=== PATIENT | female | born 1965 | race Caucasian/White ===

== ENCOUNTER 2024-02-08 18:36 | Observation (INO) | payer MEDICAID, SELFPAY ==
[2024-02-08 18:37] VITALS: BP 227/113; PULSE 95; RESP 18; TEMP 37.1; O2SAT 96; BMI 28.5
--- NOTE | 2024-02-08 18:42 | XRR_ITS ---
PROCEDURE INFORMATION: Exam: XR Chest Exam date and time: 02/08/2024 7:06 PM Age: 58 years old Clinical indication: Screening exam; Other screening; Additional info: Suicidal ideation TECHNIQUE: Imaging protocol: Radiologic exam of the chest. Views: 1 view. COMPARISON: No relevant prior studies available. FINDINGS: Lungs: Unremarkable. No consolidation. Pleural spaces: Unremarkable. No pleural effusion. No pneumothorax. Heart/Mediastinum: Unremarkable. No cardiomegaly. Bones/joints: Unremarkable. XR/XR chest 1V portable [id number] IMPRESSION: No acute findings.
--- NOTE | 2024-02-08 18:51 | ECG_ITS ---
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 Measurements Intervals [place] Rate: 84 P: 46 IA: 160 QRS: -45 QRSD: 92 T: 61 QT: 383 QTc: 454 Interpretive Statements SINUS RHYTHM POSSIBLE LEFT ATRIAL ENLARGEMENT [-0.1mV P-WAVE IN V1/V2] LEFT ANTERIOR FASCICULAR BLOCK [QRS AXIS <= -45, QR IN I, RS IN II] No previous ECG available for comparison Electronically Signed On 02-08-2024 20:18:08 CDT by Damien Swift M.D. [id number]
[2024-02-08 19:17] LABS: Basophils # 0.1 10^3/uL (0.0-0.1); Basophils % 1.3 %; Eosinophils # 0.2 10^3/uL (0.0-0.8); Eosinophils % 2.2 %; Hematocrit 42.3 % (36-47); Lymphocytes # 2.6 10^3/uL (0.8-4.8); Lymphocytes % 32.8 %; Mean Corpuscular HGB Conc 32.9 g/dL (30-55); Mean Corpuscular Hemoglobin 28.7 pg (27-33); Mean Corpuscular Volume 87.2 fl (85-98); Mean Platelet Volume 10.1 fL (7.4-10.4); Monocytes # 0.9 10^3/uL (0.2-0.9); Monocytes % 11.5 %; Neutrophils # 4.06 10^3/uL (1.8-7.7); Neutrophils % 52.1 %; Nucleated Red Blood Cells % 0 %; Platelet Count 283 10^3/cmm (157-399); Red Blood Count 4.85 10^6/uL (3.85-5.65); Red Cell Distribution Width 12.5 % (12.1-15.1)
[2024-02-08 19:18] LABS: Bilirubin Urine Negative (Negative); Blood Urine Negative (Negative); Glucose Urine UA Negative (Normal); Ketones Urine Negative (Negative); Leukocyte Esterase Urine Negative (Negative); Nitrate Urine Negative (Negative); Protein Urine Negative (Negative); Specific Gravity, Urine 1.011 (1.005-1.030); Urine Appearance Clear (CLEAR); Urine Color Yellow (Yellow)
[2024-02-08 19:23] LABS: Add Urine Microscopic? YES; Bacteria Urine None Seen /hpf; Hyaline Casts Urine 0.81 /lpf; RBC Urine 0-2 /hpf (0-2); Squamous Epithelial Cell Urine 0-5 /hpf (0-5); WBC Urine 0-5 /hpf (0-5)
[2024-02-08 19:27] LABS: Amphetamines Screen Urine Negative (Negative); Barbiturates Screen Urine Negative (Negative); Benzodiazepines Screen Urine Negative (Negative); Cocaine Screen Urine Negative (Negative); Opiate Screen Urine Negative (Negative); PCP Screen Urine Negative (Negative); THC Screen Urine Positive (Negative)
--- NOTE | 2024-02-08 19:44 | W.ED.PSYCHS ---
HPI - Psych General: Chief Complaint: Psychiatric Symptoms Stated Complaint: 96 hour hold Time Seen by Provider: 02/08/24 18:42 History of Present Illness: Patient is brought in by police for 96-hour hold due to suicidal ideation. Patient family and police did write affidavits. Patient says she is suicidal and does not deny this. Related Data Allergies Allergy/AdvReac Type Severity Reaction Status Date / Time No Known Allergies Allergy Verified 02/08/24 18:37 Review of Systems General: Reports: 10 or more systems reviewed and unremarkable except in HPI and below Physical Exam Const: COMMON NORMALS: no acute distress, average body habitus, patient oriented x3, no limitations, healthy appearing, alert and well nourished HENMT: COMMON NORMALS: normocephalic, atraumatic, hearing grossly normal bilaterally, external ears normal, Normal external nose present and moist oral mucous membranes HEAD & SCALP: normocephalic and atraumatic NOSE: Normal external nose present EXTERNAL EAR: Yes external ears normal Neck/C-Spine: COMMON NORMALS: full ROM, no lymphadenopathy, supple, no meningeal signs, no JVD and Thyroid normal THYROID: Thyroid normal Chest: COMMONS NORMALS: normal inspection of the chest and normal palpation of entire chest wall Resp: COMMON NORMALS: normal respiratory effort, No retractions, No use of accessory muscles and clear to auscultation bilaterally AUSCULTATION: clear to auscultation bilaterally Cardio: COMMON NORMALS: no JVD, regular rate, regular rhythm, S1 normal heart sound present, S2 normal heart sound present, No gallops present (Cardio), No clicks present (Cardio), No murmurs present (Cardio) and No rub (Cardio) RATE: regular rate RHYTHM: regular rhythm HEART SOUNDS: S1 normal heart sound present and S2 normal heart sound present GI: COMMON NORMALS: Normal to inspection, nondistended, normoactive bowel sounds present, Soft to palpation, non-tender, No hepatosplenomegaly present and no masses PALPATION: Yes Soft to palpation and Yes No hepatosplenomegaly present Neuro: COMMON NORMALS: patient oriented x3 SENSORIUM/ORIENTATION: Yes alert MENINGEAL SIGNS: Yes no meningeal signs Course Vital Signs: Vital signs: Vital Signs Temperature 97.8 F 02/09/24 08:10 Pulse Rate 78 02/09/24 08:10 Respiratory Rate 16 02/09/24 08:10 Blood Pressure 211/114 02/09/24 08:10 Pulse Oximetry 98 02/09/24 08:10 Oxygen Delivery Me thod Room Air 02/09/24 08:12 MDM - Psych Medical Decision Making Patient presents for suicidal ideation with 96-hour hold. Once we cleared the patient medically anticipate we will start calling around to appropriate facilities if we do not have a bed here in MPU. Lab Data 02/08/24 19:05 02/08/24 19:05 Radiology Impressions Chest X-Ray 02/08/24 18:42 IMPRESSION: No acute findings. Laboratory Results WBC 7.80 10^3/uL (3.29-11.43) 02/08/24 19:05 RBC 4.85 10^6/uL (3.85-5.65) 02/08/24 19:05 Hgb 13.90 g/dL (11.27-16.99) 02/08/24 19:05 Hct 42.3 % (36-47) 02/08/24 19:05 MCV 87.2 fl (85-98) 02/08/24 19:05 MCH 28.7 pg (27-33) 02/08/24 19:05 MCHC 32.9 g/dL (30-55) 02/08/24 19:05 RDW 12.5 % (12.1-15.1) 02/08/24 19:05 Plt Count 283 10^3/cmm (157-399) 02/08/24 19:05 MPV 10.1 fL (7.4-10.4) 02/08/24 19:05 Neut % (Auto) 52.1 % 02/08/24 19:05 Lymph % (Auto) 32.8 % 02/08/24 19:05 [place] % (Auto) 11.5 % 02/08/24 19:05 Eos % (Auto) 2.2 % 02/08/24 19:05 Baso % (Auto) 1.3 % 02/08/24 19:05 Neut # (Auto) 4.06 10^3/uL (1.8-7.7) 02/08/24 19:05 Lymph # (Auto) 2.6 10^3/uL (0.8-4.8) 02/08/24 19:05 [place] # (Auto) 0.9 10^3/uL (0.2-0.9) 02/08/24 19:05 Eos # (Auto) 0.2 10^3/uL (0.0-0.8) 02/08/24 19:05 Baso # (Auto) 0.1 10^3/uL (0.0-0.1) 02/08/24 19:05 Nucleated RBC % (auto) 0 % 02/08/24 19:05 Nucleated RBCs # 0.0 /100WBC 02/08/24 19:05 Sodium 132 mmol/L (136-145) L 02/08/24 19:05 Potassium 3.2 mmol/L (3.5-5.1) L 02/08/24 19:05 Chloride 94 mmol/L (98-107) L 02/08/24 19:05 Carbon Dioxide 24 mmol/L (22-29) 02/08/24 19:05 Anion Gap 17.2 (5-19) 02/08/24 19:05 BUN 6 mg/dL (6-20) 02/08/24 19:05 Creatinine 0.7 mg/dL (0.5-0.9) 02/08/24 19:05 GFR Calculation 85.9 mL/min (90-130) L 02/08/24 19:05 Glucose 127 mg/dL (65-115) H 02/08/24 19:05 Estimat Average Glucose 108 02/08/24 19:05 Hemoglobin A1c 5.4 % (4.0-6.0) 02/08/24 19:05 Calculated Osmolality 273 mOsm/kg (285-295) L 02/08/24 19:05 Calcium 9.1 mg/dL (8.5-10.5) 02/08/24 19:05 Total Bilirubin 0.8 mg/dL (0.15-1.2) 02/08/24 19:05 AST 13 U/L (0-32) 02/08/24 19:05 ALT 20 U/L (0-33) 02/08/24 19:05 Alkaline Phosphatase 97 U/L (35-105) 02/08/24 19:05 Total Protein 7.4 g/dL (6.6-8.7) 02/08/24 19:05 Albumin 4.3 g/dL (3.5-5.2) 02/08/24 19:05 Globulin 3.1 g/dL (1.3-4.6) 02/08/24 19:05 TSH 2.13 uIU/mL (0.27-4.20) 02/08/24 19:05 Urine Color Yellow (Yellow) 02/08/24 19:00 Urine Appearance Clear (CLEAR) 02/08/24 19:00 Urine pH 6.0 (5-7) 02/08/24 19:00 Ur Specific [place] 1.011 (1.005-1.030) 02/08/24 19:00 Urine Protein Negative (Negative) 02/08/24 19:00 Urine Glucose (UA) Negative (Normal) 02/08/24 19:00 Urine Ketones Negative (Negative) 02/08/24 19:00 Urine Blood Negative (Negative) 02/08/24 19:00 Urine Nitrate Negative (Negative) 02/08/24 19:00 Urine Bilirubin Negative (Negative) 02/08/24 19:00 Urine Urobilinogen 1.0 mg/dL (Negative) 02/08/24 19:00 Ur Leukocyte Esterase Negative (Negative) 02/08/24 19:00 Urine RBC 0-2 /hpf (0-2) 02/08/24 19:00 Urine WBC 0-5 /hpf (0-5) 02/08/24 19:00 Ur Squamous Epith Cells 0-5 /hpf (0-5) 02/08/24 19:00 Amorphous Sediment Not Reportable 02/08/24 19:00 Urine Bacteria None seen /hpf (NONE) 02/08/24 19:00 Hyaline Casts 0.81 /lpf 02/08/24 19:00 Salicylates < 0.3 mg/dL (3-10) L 02/08/24 19:05 Urine Opiates Screen Negative ng/mL (Negative) 02/08/24 19:00 Acetaminophen < 5.0 ug/mL (10-30) L 02/08/24 19:05 Ur Barbiturates Screen Negative ng/mL (Negative) 02/08/24 19:00 Ur Phencyclidine Scrn Negative ng/mL (Negative) 02/08/24 19:00 Ur Amphetamines Screen Negative ng/mL (Negative) 02/08/24 19:00 U Benzodiazepines Scrn Negative ng/mL (Negative) 02/08/24 19:00 Urine Cocaine Screen Negative ng/mL (Negative) 02/08/24 19:00 U Marijuana (THC) Screen Positive ng/mL (Negative) H 02/08/24 19:00 Ethyl Alcohol < 10 mg/dL (0-10) 02/08/24 19:05 Coronavirus (PCR) Positive (Negative) A 02/08/24 19:00 Influenza A (PCR) Negative (Negative) 02/08/24 19:00 Influenza Type B (PCR) Negative (Negative) 02/08/24 19:00 RSV (PCR) Negative (Negative) 02/08/24 19:00 All radiology interpretation(s) finalized by discharge Discharge Plan Discharge Patient Disposition: Admitted As Inpatient Admit Provider: Keith Colon Clinical Impression: Suicidal ideation, COVID-19 Condition: Stable Coding Level of Care Code ED [employer] Manager for Luke Barrientos
[2024-02-08 19:47] VITALS: BP 213/112
[2024-02-08] MEDS: cloNIDine 0.1 mg Tablet 0.2 MG PO (19:47)
[2024-02-08 19:48] LABS: Alanine Aminotransferase 20 U/L (0-33); Albumin Level 4.3 g/dL (3.5-5.2); Alkaline Phosphatase 97 U/L (35-105); Anion Gap 17.2 (5-19); Aspartate Amino Transferase 13 U/L (0-32); Blood Urea Nitrogen 6 mg/dL (6-20); Calcium 9.1 mg/dL (8.5-10.5); Carbon Dioxide 24 mmol/L (22-29); Chloride 94 mmol/L (98-107); Creatinine Clr Calc Pharmacy 77.5507; Globulin 3.1 g/dL (1.3-4.6); Glomerular Filtration Rate 85.9 mL/min (90-130); Glucose 127 mg/dL (65-115); Osmolality Calculated 273 mOsm/kg (285-295); Potassium 3.2 mmol/L (3.5-5.1); Sodium 132 mmol/L (136-145); Thyroid Stimulating Hormone 2.13 uIU/mL (0.27-4.20); Total Bilirubin 0.8 mg/dL (0.15-1.2); Total Protein 7.4 g/dL (6.6-8.7)
[2024-02-08 19:55] LABS: Influenza A NEGATIVE (Negative); Influenza B NEGATIVE (Negative); Respiratory Syncytial Virus Ce NEGATIVE (Negative)
[2024-02-08 19:55] LABS: Acetaminophen < 5.0 ug/mL (10-30); Alcohol Level < 10 mg/dL (0-10); Salicylate < 0.3 mg/dL (3-10)
[2024-02-08 20:04] LABS: Covid PCR Positive (Negative)
[2024-02-08 22:00] VITALS: BP 178/94; PULSE 73; RESP 16; O2SAT 98
[2024-02-09] VITALS (8 sets, daily range): BP systolic 168–240; BP diastolic 75–114; PULSE 73–94; RESP 16–24; TEMP 36.6–37; O2SAT 95–99; BMI 29.1
--- NOTE | 2024-02-09 06:53 | P.HP_ITS ---
Providers/Chief Complaint 2 Admitting Physician: Keith Colon Chief Complaint: 96 hour hold History of Present Illness 58-year-old lady was brought into the emergency department with reported suicidal ideation with affidavit by family and police, placed on 96-hour hold. Arrangements initiated for admission to neuropsychiatric unit but tested positive for COVID-19, unable to admit to psychiatry at current time due to this. She is asymptomatic. Review of Systems 2 Const: Denies: fever(s), chills, body aches or malaise ENMT: Denies: throat pain Card: Denies: chest pain, edema, pre-syncope or dyspnea on exertion Resp: Denies: dyspnea, productive cough, change in phlegm color or hemoptysis GI: Denies: abdominal pain, nausea, vomiting, diarrhea, constipation, hematochezia or melena : Denies: flank pain, urinary frequency or hematuria Musc: Denies: back pain, joint swelling or joint redness Skin/Breast: Denies: rash or new lesions Neuro: Denies: headache(s), dizziness or confusion Psych: Reports: depression and suicidal ideation Medications/Allergies Allergies Allergy/AdvReac Type Severity Reaction Status Date / Time No Known Allergies Allergy Verified 02/08/24 18:37 Vitals/I&O/Wt Last Vital Signs Temp 98.7 F 02/08/24 18:37 Pulse 82 02/09/24 04:00 Resp 16 02/09/24 04:00 BP 168/75 02/09/24 04:00 Pulse Ox 98 02/09/24 04:00 O2 Del Method Room Air 02/09/24 04:00 Weight last 48 hrs Weight 68.492 kg Physical Exam 2 Const: COMMON NORMALS: patient oriented x3 and alert GENERAL APPEARANCE: c ooperative ORIENTATION/CONSCIOUSNESS: Yes awake HENMT: COMMON NORMALS: oropharynx normal Neck/C-Spine: COMMON NORMALS: no JVD Resp: COMMON NORMALS: normal respiratory effort and clear to auscultation bilaterally AUSCULTATION: clear to auscultation bilaterally Cardio: COMMON NORMALS: no JVD, regular rhythm, S1 normal heart sound present, S2 normal heart sound present and No murmurs present (Cardio) RHYTHM: regular rhythm HEART SOUNDS: S1 normal heart sound present and S2 normal heart sound present GI: COMMON NORMALS: Normal to inspection, nondistended, normoactive bowel sounds present, Soft to palpation and non-tender PALPATION: Yes Soft to palpation Extremity: COMMON NORMALS: no joint enlargement and no pedal edema Neuro: COMMON NORMALS: patient oriented x3 and moves all extremities S ENSORIUM/ORIENTATION: Yes alert Skin: COMMON NORMALS: no rashes or lesions noted GENERAL SKIN EXAM: no rashes or lesions noted Data 02/08/24 19:05 02/08/24 19:05 A&P Assessment and plan (1) Suicidal ideation: Placed on 96-hour hold with affidavits from her as well as police. Discussed with ER provider. Admission due to threat to life of self. Pending psychiatric evaluation. Report no beds available currently on our psychiatric unit, and unable to find a bed for transfer due to coming back positive for COVID-19. Reviewed UDS, positive for marijuana. (2) COVID-19: Asymptomatic mild COVID-19. Reviewed vitals, CBC, CMP, TSH, UA reviewed ER provider note, discussed with ER provider. Placed in isolation. Monitor for any development of symptoms. She knows to let us know in case of any change in her symptoms. (3) HTN (hypertension): Blood pressure 160/75, on presentation as high as 227/113. Received clonidine. Uncontrolled hypertension. Will start lisinopril. Monitor blood pressures. Will need follow-up with PCP for further optimization after discharge. (4) Hypokalemia: Mild hypokalemia, potassium 3.2. Requesting replacement. Check magnesium. (5) Hyperglycemia: Check A1c. (6) Hyponatremia: Mild hyponatremia 132. Possibly due to COVID-19. Regular diet as tolerating. Reviewed TSH, normal. Recheck chemistry. Attestations 2 Medical Necessity Statement*: Admission over 2 midnights anticipated for assessment and management of suicidal ideation. and High MDM includes number and complexity of problems actively addressed during encounter and amount and/or complexity of data reviewed/ordered [ previous or external records, resulted lab(s)/test(s), ordered lab(s)/test(s) and other healthcare professional discussion] as documented Diagnoses Suicidal ideation R45.851 COVID-19 U07.1 HTN (hypertension) I10 Hypokalemia E87.6 Hyperglycemia R73.9 Hyponatremia E87.1
--- NOTE | 2024-02-09 07:54 | PC.NURSE ---
pt refused bp medication, this rn educated pt on the risk of high bp and pt still declined. pt was visibly upset stating 'im refusing everything. i dont want any treatment or any medication, i want to speak with a fender mechanic' Placido Galeano and Charge nurse present. pt states that she would like her son contacted and placido galeano called him and allowed pt to talk to him. pt states she doesnt want to be here and that she wants to see the psychiatrist so she can leave. Pt was reeducated that she was a 96 hour hold and is only able to have visitors until 3-4. Pt states ' well this is bullshit.'
[2024-02-09 09:01] LABS: Estmated Average Glucose 108; Hemoglobin A1C 5.4 % (4.0-6.0)
--- NOTE | 2024-02-09 11:27 | P.PN_ITS ---
Subjective 2 Subjective: She is a new admission overnight with suicidal ideation and COVID-19 positive but asymptomatic. Seen her at bedside this morning denies any complaints of shortness of breath or chest pain or palpitations. Feels normal and seems to be calm. Blood pressure on the higher side at 211/114 but denying oral medications and IV line. Medications: Reviewed: Yes Vitals/I&O/Wt Last Vital Signs Temp 97.8 F 02/09/24 08:10 Pulse 78 02/09/24 08:10 Resp 16 02/09/24 08:10 BP 211/114 02/09/24 08:10 Pulse Ox 98 02/09/24 08:10 O2 Del Method Room Air 02/09/24 08:12 Weight last 48 hrs Weight 69.989 kg Weight 68.492 kg Physical Exam 2 Narrative: She is alert awake oriented x 3, not in acute distress, seems calm Chest clear to auscultation bilaterally Cardiovascular normal heart sounds abdomen soft nontender nondistended normal bowel sounds extremities no edema present bilateral lower extremity Data 02/08/24 19:05 02/08/24 19:05 A&P Assessment and plan (1) Suicidal ideation: Placed on 96-hour hold with affidavits from her as well as police. Discussed with ER provider. Admission due to threat to life of self. Pending psychiatric evaluation. Report no beds available currently on our psychiatric unit, and unable to find a bed for transfer due to coming back positive for COVID-19. Reviewed UDS, positive for marijuana. (2) COVID-19: Asymptomatic mild COVID-19. . Placed in isolation. Monitor for any development of symptoms. She knows to let us know in case of any change in her symptoms. (3) HTN (hypertension): Blood pressure 160/75, on presentation as high as 227/113. Received clonidine. Uncontrolled hypertension. Will start lisinopril. Monitor blood pressures. Will need follow-up with PCP for further optimization after discharge. (4) Hypokalemia: Refuse replacement (5) Hyperglycemia: Check A1c. (6) Hyponatremia: Mild hyponatremia 132. Possibly due to COVID-19. Regular diet as tolerating. Reviewed TSH, normal. Recheck chemistry. Plan Awaiting to be seen consulted by psych. Continue sitter 1:1 Attestations 2 Medical Necessity Statement*: Admission over 2 midnights anticipated for assessment and management of suicidal ideation. Time Spent in Patient Care: 15 minutes Coding Level of Care Code Acute Code for Chg Fwd Diagnoses Suicidal ideation R45.851 COVID-19 U07.1 HTN (hypertension) I10 Hypokalemia E87.6 Hyperglycemia R73.9 Hyponatremia E87.1 Time Spent (min) 15
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
--- NOTE | 2024-02-09 18:33 | PC.NURSE ---
Pt continues to refuse medication til her son comes tomorrow. Asked multiple times throughout the shift.
--- NOTE | 2024-02-09 20:57 | PC.NURSE ---
This nurse was notified of elevated BP 200/63 by MELINDA/dedrick. Went in room to give the patient her hydralazine and she refused. This nurse educated her on the risks involved with high blood pressures and she still insisted on refusing stating that she isn't taking any of her medications until her family gets here. Dr Vargas has been notified.
[2024-02-10] VITALS (9 sets, daily range): BP systolic 129–203; BP diastolic 44–101; PULSE 86–98; RESP 17–18; TEMP 36.6–37; O2SAT 95–99
[2024-02-10 04:29] LABS: Basophils # 0.1 10^3/uL (0.0-0.1); Basophils % 1.1 %; Eosinophils # 0.3 10^3/uL (0.0-0.8); Eosinophils % 3.4 %; Hematocrit 40.7 % (36-47); Lymphocytes # 2.7 10^3/uL (0.8-4.8); Lymphocytes % 32.8 %; Mean Corpuscular HGB Conc 34.6 g/dL (30-55); Mean Corpuscular Volume 83.6 fl (85-98); Mean Platelet Volume 10.6 fL (7.4-10.4); Monocytes % 11.7 %; Neutrophils # 4.13 10^3/uL (1.8-7.7); Neutrophils % 50.8 %; Nucleated Red Blood Cells % 0 %; Platelet Count 267 10^3/cmm (157-399); Red Blood Count 4.87 10^6/uL (3.85-5.65); Red Cell Distribution Width 12.2 % (12.1-15.1); White Blood Count 8.14 10^3/uL (3.29-11.43)
[2024-02-10 04:50] LABS: Blood Urea Nitrogen 3 mg/dL (6-20); Calcium 8.7 mg/dL (8.5-10.5); Carbon Dioxide 28 mmol/L (22-29); Chloride 95 mmol/L (98-107); Creatinine Clr Calc Pharmacy 91.4419; Glomerular Filtration Rate 102.7 mL/min (90-130); Glucose 109 mg/dL (65-115); Osmolality Calculated 271 mOsm/kg (285-295); Sodium 132 mmol/L (136-145)
[2024-02-10 04:51] LABS: Anion Gap 12.7 (5-19); Potassium 3.7 mmol/L (3.5-5.1)
--- NOTE | 2024-02-10 08:19 | PC.NURSE ---
pt refused all medication, educ pt on risks and benefits of medications.
[2024-02-10] MEDS: hyDRALAzine 25 mg Tablet PO ×3 (10:32→20:08)
[2024-02-10] MEDS: lisinopril 5 mg Tablet PO (10:32)
--- NOTE | 2024-02-10 14:09 | P.PN_ITS ---
Subjective 2 Subjective: No acute overnight events noted. Patient has been refusing medications for uncontrolled hypertension. Seen her at bedside this morning and explained and educated about antihypertensives. Patient agreed to take medications for now. Medications: Reviewed: Yes Vitals/I&O/Wt Last Vital Signs Temp 98.6 F 02/10/24 11:48 Pulse 87 02/10/24 11:48 Resp 18 02/10/24 11:50 BP 175/86 02/10/24 11:48 Pulse Ox 97 02/10/24 11:48 O2 Del Method Room Air 02/10/24 11:48 02/09/24 02/10/24 02/10/24 22:59 06:59 14:59 Intake Total 813 / 813 480 / 480 Balance 813 / 813 480 / 480 Weight last 48 hrs Weight 69.989 kg Weight 68.492 kg Physical Exam 2 Narrative: She is alert awake oriented x 3, not in acute distress, seems calm Chest clear to auscultation bilaterally Cardiovascular normal heart sounds abdomen soft nontender nondistended normal bowel sounds extremities no edema present bilateral lower extremity Data 02/10/24 04:21 02/10/24 04:21 A&P Assessment and plan (1) Suicidal ideation: Placed on 96-hour hold with affidavits from her as well as police. Discussed with ER provider. Admission due to threat to life of self. Pending psychiatric evaluation. Report no beds available currently on our psychiatric unit, and unable to find a bed for transfer due to coming back positive for COVID-19. Reviewed UDS, positive for marijuana. (2) COVID-19: Asymptomatic mild COVID-19. . Placed in isolation. Monitor for any development of symptoms. She knows to let us know in case of any change in her symptoms. (3) HTN (hypertension): Blood pressure 160/75, on presentation as high as 227/113. Received clonidine. Uncontrolled hypertension. Will start lisinopril. Monitor blood pressures. Will need follow-up with PCP for further optimization after discharge. (4) Hypokalemia: Refuse replacement (5) Hyperglycemia: Check A1c. (6) Hyponatremia: Mild hyponatremia 132. Possibly due to COVID-19. Regular diet as tolerating. Reviewed TSH, normal. Recheck chemistry. Plan 02/08-Awaiting to be seen consulted by psych. Continue sitter 1:1 02/09-blood pressure better controlled on current medications at 175/86. Continue p.o. hydralazine amlodipine and lisinopril for now. Seen by psych yesterday. Agreed for antidepressant therapy, engagement in individual milieu and group therapy, CIWA for alcohol withdrawal, and control of hypertension. Will follow-up for further recommendations. Attestations 2 Medical Necessity Statement*: Admission over 2 midnights anticipated for assessment and management of suicidal ideation. Time Spent in Patient Care: 15 minutes Coding Level of Care Code Acute Code for Chg Fwd Diagnoses Suicidal ideation R45.851 COVID-19 U07.1 HTN (hypertension) I10 Hypokalemia E87.6 Hyperglycemia R73.9 Hyponatremia E87.1 Time Spent (min) 15
--- NOTE | 2024-02-10 15:32 | PC.NURSE ---
pt changed her mind and took her po hydralazine and lisinopril @ approx. 1030a
--- NOTE | 2024-02-10 15:52 | P.NPUPN_ITS ---
Subjective NPU 2 Subjective: , 58-year-old female admitted with increased confusion with the patient having endorsed hallucinations and allegedly endorsing thoughts about hurting herself. The patient had reported a past history of alcohol use but on admission here had no blood alcohol level. She had minimized any history of alcohol withdrawal symptoms. She denied any hallucinations and did not appear to be showing evidence of psychosis according to her one-to-one. She had been more agreeable about starting her antihypertensives and reported that she wished to get started back on her Prozac. Patient did not recall having any problems with hallucinations. Mental Status Exam 2 MSE Comments: White female who appeared relatively less surly today. She had reported her mood as being fine. She minimized suicidal or homicidal ideation. She did not appear to be responding internal stimuli. She was alert and oriented to person place and time. Her speech was normal in regards to rate rhythm and prosody. She appeared less oppositional in general. Her insight appeared limited. Her judgment was limited. Her impulse control appeared fair. She had been less oppositional today. There was no evidence of delusional thinking. She denied any auditory or visual hallucinations. She did not appear to be responding to internal stimuli. Her attention span appeared better. Vitals/I&O/Wt Last Vital Signs Temp 98.6 F 02/10/24 15:07 Pulse 87 02/10/24 15:07 Resp 18 02/10/24 15:07 BP 169/87 02/10/24 15:07 Pulse Ox 98 02/10/24 15:07 O2 Del Method Room Air 02/10/24 15:07 02/10/24 02/10/24 02/10/24 06:59 14:59 22:59 Intake Total 480 / 480 Balance 480 / 480 Weight last 48 hrs Weight 69.989 kg Weight 68.492 kg Data NPU 02/10/24 04:21 02/10/24 04:21 A&P Assessment and plan (1) MDD (major depressive disorder), recurrent severe, without psychosis: (2) Suicidal ideation: Plan 58-year-old female admitted on a 96-hour hold due to reports of suicidal ideation and bizarre behavior suggested by the niece currently on the MedSurg floor due to COVID-19. The patient was agreeable to considering antidepressant therapy. Further evaluation regarding psychosis is warranted as she does appear guarded but did not appear to be overtly psychotic; but we will continue to watch. 1.? Engage patient in individual milieu and group therapy. #2?? Recommend sober living treatment at the highest level of care to which the patient is willing to commit #3??? CIWA for alcohol withdrawal #4?? TO-15 minute checks? #5?? Will attempt to gather collateral information #6 If patient remains compliant, I would consider having social work set up patient for outpatient psychotherapy and medication management for psychotropics. I will restart prozac as patient had previously been on 40mg daily. Attestations NPU 2 Medical Necessity Statement*: Inpatient hospitalization may be unnecessary at this time if is willing to monitor patient. Coding Level of Care Code Acute Code for g Fwd Diagnoses MDD (major depressive disorder), recurrent severe, without psychosis F33.2 Suicidal ideation R45.85
[2024-02-10] MEDS: fluoxetine 20 mg Capsule PO (16:06)
[2024-02-10] MEDS: acetaminophen 325 mg Tablet 650 MG PO (16:06)
--- NOTE | 2024-02-10 18:04 | PC.NURSE ---
pts bp @ approx 1800 was 129/70, pt wants to wait on her 1800 dose of amlodipine.
[2024-02-10] MEDS: amlodipine 10 mg Tablet PO (20:08)
[2024-02-11] VITALS: BP 175/91; PULSE 94; RESP 17; TEMP 36.8; O2SAT 98
[2024-02-11 04:00] VITALS: BP 182/97; PULSE 83; RESP 16; TEMP 36.8; O2SAT 98
[2024-02-11 04:37] LABS: Basophils # 0.1 10^3/uL (0.0-0.1); Eosinophils # 0.2 10^3/uL (0.0-0.8); Eosinophils % 2.7 %; Hematocrit 41.4 % (36-47); Lymphocytes # 2.7 10^3/uL (0.8-4.8); Lymphocytes % 34.8 %; Mean Corpuscular HGB Conc 34.3 g/dL (30-55); Mean Corpuscular Hemoglobin 29.3 pg (27-33); Mean Corpuscular Volume 85.4 fl (85-98); Mean Platelet Volume 10.3 fL (7.4-10.4); Monocytes # 0.8 10^3/uL (0.2-0.9); Monocytes % 10.2 %; Neutrophils # 4.01 10^3/uL (1.8-7.7); Neutrophils % 51.2 %; Nucleated Red Blood Cells % 0 %; Platelet Count 256 10^3/cmm (157-399); Red Blood Count 4.85 10^6/uL (3.85-5.65); Red Cell Distribution Width 12.6 % (12.1-15.1); White Blood Count 7.84 10^3/uL (3.29-11.43)
[2024-02-11 04:57] LABS: Anion Gap 11.4 (5-19); Blood Urea Nitrogen 4 mg/dL (6-20); Calcium 8.9 mg/dL (8.5-10.5); Carbon Dioxide 29 mmol/L (22-29); Chloride 97 mmol/L (98-107); Creatinine Clr Calc Pharmacy 91.4419; Glomerular Filtration Rate 102.7 mL/min (90-130); Glucose 108 mg/dL (65-115); Osmolality Calculated 275 mOsm/kg (285-295); Potassium 3.4 mmol/L (3.5-5.1); Sodium 134 mmol/L (136-145)
[2024-02-11 07:06] VITALS: BP 159/81; PULSE 81; RESP 17; TEMP 36.7; O2SAT 96
[2024-02-11] MEDS: lisinopril 10 mg Tablet PO (08:57)
[2024-02-11] MEDS: fluoxetine 20 mg Capsule PO (08:57)
[2024-02-11] MEDS: hyDRALAzine 25 mg Tablet PO (08:57)
--- NOTE | 2024-02-11 09:04 | PC.CHAP ---
Pastoral Care Encounter/Spiritual Assessment Type of Contact [] Declined duplicating machine servicer visit [] Patient/Family/Request visit [] Outpatient visit [] Follow-up visit [] Physician referral [] Code/Alert [x] Routine visit [] Staff referral [] Actively dying [] Patient sleeping [] Family support [] [] Out of room [] Palliative care [] [] Receiving care in room [] Pre-surgical visit [] Trauma [] Long length of stay [] ICU visit [] Other: Relational/Emotional Strength [] Patient feels connected with others/family/visitors/staff [] Distress [] Loneliness/isolation [] Abandonment Spirituality of Patient [] Person of Sylvia [] Attends Faith of their Sylvia [] Believes in Prayer [] Reads Bible or Worship materials [] There are Spiritual issues to be addressed Regional Education Coordinator Interventions [x] Prayer [] Active listening [] Non-anxious presence [] Spiritual/emotional support [] Crisis/trauma care [] Spiritual counseling [] Bereavement support [] Provided bereavement packet [] Provided Bible/devotional materials [] Provided toy/stuffed animal, coloring book to patient or family member [] Provided Communion [] Anointing/[place] [] Salvation [] Completed spiritual assessment [] Other: Impact on Illness or Injury [] Angry [] Fearful [] Anxious [] Often cries [] Exhaustion [] Unable to work [] Unable to attend taoism [] Unable to walk/stand [] Unable to read [] Unable to drive [] Unable to eat/drink [] Unable to sleep [] Unable to be with family [] Patient intubated [] Other: Summary precaution Time spent with patient
[2024-02-11 11:10] VITALS: BP 158/73; PULSE 76; RESP 17; TEMP 36.9; O2SAT 95
--- NOTE | 2024-02-11 13:10 | P.PN_ITS ---
Subjective 2 Subjective: No acute overnight events noted Medications: Reviewed: Yes Vitals/I&O/Wt Last Vital Signs Temp 98.4 F 02/11/24 11:10 Pulse 76 02/11/24 11:10 Resp 17 02/11/24 11:10 BP 158/73 02/11/24 11:10 Pulse Ox 95 02/11/24 11:10 O2 Del Method Room Air 02/11/24 11:10 02/10/24 02/11/24 02/11/24 22:59 06:59 14:59 Intake Total 960 / 1440 840 / 840 Balance 960 / 1440 840 / 840 Weight last 48 hrs Weight 69.4 kg Physical Exam 2 Narrative: She is alert awake oriented x 3, not in acute distress, seems calm Chest clear to auscultation bilaterally Cardiovascular normal heart sounds abdomen soft nontender nondistended normal bowel sounds extremities no edema present bilateral lower extremity Data 02/11/24 04:14 02/11/24 04:14 A&P Assessment and plan (1) Suicidal ideation: Placed on 96-hour hold with affidavits from her as well as police. Discussed with ER provider. Admission due to threat to life of self. Pending psychiatric evaluation. Report no beds available currently on our psychiatric unit, and unable to find a bed for transfer due to coming back positive for COVID-19. Reviewed UDS, positive for marijuana. (2) COVID-19: Asymptomatic mild COVID-19. . Placed in isolation. Monitor for any development of symptoms. She knows to let us know in case of any change in her symptoms. (3) HTN (hypertension): Blood pressure 160/75, on presentation as high as 227/113. Received clonidine. Uncontrolled hypertension. Will start lisinopril. Monitor blood pressures. Will need follow-up with PCP for further optimization after discharge. (4) Hypokalemia: Refuse replacement (5) Hyperglycemia: Check A1c. (6) Hyponatremia: Mild hyponatremia 132. Possibly due to COVID-19. Regular diet as tolerating. Reviewed TSH, normal. Recheck chemistry. Plan 02/08-Awaiting to be seen consulted by psych. Continue sitter 1:1 02/09-blood pressure better controlled on current medications at 175/86. Continue p.o. hydralazine amlodipine and lisinopril for now. Seen by psych yesterday. Agreed for antidepressant therapy, engagement in individual milieu and group therapy, CIWA for alcohol withdrawal, and control of hypertension. Will follow-up for further recommendations. 02/10-blood pressure better controlled on current medications at 158/73. She has asymptomatic COVID-19 infection. Will continue isolation for total of 5 days and then discussed with psych to be transferred to inpatient psych. Attestations 2 Medical Necessity Statement*: Admission over 2 midnights anticipated for assessment and management of suicidal ideation. She is still on 96-hour hold. On COVID 19 isolation protocol and will be probably transferred to inpatient psych on 02/13 Time Spent in Patient Care: 15 minutes Coding Level of Care Code Acute Code for Chg Fwd Diagnoses Suicidal ideation R45.851 COVID-19 U07.1 HTN (hypertension) I10 Hypokalemia E87.6 Hyperglycemia R73.9 Hyponatremia E87.1 Time Spent (min) 15
--- NOTE | 2024-02-11 14:15 | PC.NURSE ---
Patient dressed in her regular clothes walking past the nurses station carrying her crossword books toward the elevator. This nurse asked patient where she was going. Patient states, I am out of here. Explained to the patient that she has not been discharged that they only reascended the 96 hour hold. Patient states, I don't care I am leaving. Asked patient to sign AMA paper. Patient signed paper. Patient is A&Ox3. Respirations even and non-labored on room air. Patient ambulated from floor with a steady gait. 1418 Dr. Carranza notified of patient's leaving AMA.
--- NOTE | 2024-02-11 14:17 | PM.MISC ---
Miscellaneous Note Purpose of Documentation: AMA note Note: Patient's 96-hour hold was rescinded. Patient was found to be walking in the hallway and wanted to go home. She left the hospital AGAINST MEDICAL ADVICE.
--- NOTE | 2024-02-11 14:43 | PC.NURSE ---
pt left ama and did not get her belongings, belongings left in er locker #9.
--- NOTE | 2024-02-11 17:45 | P.NPUPN_ITS ---
Subjective NPU 2 Subjective: ,58-year-old female admitted with increased confusion with the patient having endorsed hallucinations and allegedly endorsing thoughts about hurting herself. She denied any suicidal thoughts today. She stated that she was ready to go home. She had been compliant with taking her medications here. She minimized having any symptoms suggestive of COVID despite being positive for COVID. Mental Status Exam 2 MSE Comments: White female who appeared to have poor frustration tolerance but was more cooperative. She had reported her mood as being okay. Her affect was slightly restricted. She minimized suicidal or homicidal ideation. She did not appear to be responding internal stimuli. She was alert and oriented to person place and time. Her speech was normal in regards to rate rhythm and prosody. Her insight appeared limited. Her judgment was fair at this time. Her impulse control appeared fair. There was no evidence of delusional thinking. She denied any auditory or visual hallucinations. She did not appear to be responding to internal stimuli. Her attention span appeared better. Recent and remote memory was grossly intact. Vitals/I&O/Wt Last Vital Signs Temp 98.4 F 02/11/24 11:10 Pulse 76 02/11/24 11:10 Resp 17 02/11/24 11:10 BP 158/73 02/11/24 11:10 Pulse Ox 95 02/11/24 11:10 O2 Del Method Room Air 02/11/24 11:10 02/11/24 02/11/24 02/11/24 06:59 14:59 22:59 Intake Total 840 / 840 Balance 840 / 840 Weight last 48 hrs Weight 69.4 kg Data NPU 02/11/24 04:14 02/11/24 04:14 A&P Assessment and plan (1) MDD (major depressive disorder), recurrent severe, without psychosis: (2) Suicidal ideation: Plan 58-year-old female admitted on a 96-hour hold due to reports of suicidal ideation and bizarre behavior suggested by the niece currently on the MedSurg floor due to COVID-19. The patient was agreeable to considering antidepressant therapy. 1.? Engage patient in individual milieu and group therapy. #2?? Recommend sober living treatment at the highest level of care to which the patient is willing to commit #3??? CIWA for alcohol withdrawal #4?? TO-15 minute checks? #5?? Will attempt to gather collateral information #6 Rescinded 96 hour hold, patient can leave when stabilized medically. Attestations NPU 2 Medical Necessity Statement*: NA. Coding Level of Care Code Acute Code for Chg Fwd Diagnoses MDD (major depressive disorder), recurrent severe, without psychosis F33.2 Suicidal ideation R45.851
== END 2024-02-11 19:00 | disposition left against medical advice (07) ==
LOC: ER 02-09 00:37 → MEDSURG 02-09 07:29
PROVIDERS: Emergency Medicine; Admitting Provider Internal Medicine; Emergency Provider Emergency Medicine; Visit Provider Internal Medicine
DX: F33.2 Major depressive disorder, recurrent severe without psychotic features (principal); U07.1 COVID-19; R45.851 Suicidal ideations; I10 Essential (primary) hypertension; E87.6 Hypokalemia; R44.3 Hallucinations, unspecified; R73.9 Hyperglycemia, unspecified; E87.1 Hypo-osmolality and hyponatremia; Z87.891 Personal history of nicotine dependence; Z91.410 Personal history of adult physical and sexual abuse; Z62.810 Personal history of physical and sexual abuse in childhood; Z53.29 Procedure and treatment not carried out because of patient's decision for other reasons
CPT/HCPCS: 0241U; 36415; 71045; 80048; 80053; 80306; 80307; 81001; 83036; 83735; 84443; 85025; 93005; 99285; G0378